=== PATIENT | male | born 1975 | race Caucasian/White ===

== ENCOUNTER 2016-08-19 23:03 | Inpatient (IN) | payer BC ==
[~2016-08-19] VITALS: Ht 193 cm; Wt 95.9 kg
[2016-08-19 23:53] VITALS: BP 169/86; PULSE 81; TEMP 98.5
[2016-08-20] VITALS (11 sets, daily range): BP systolic 114–170; BP diastolic 55–94; PULSE 71–91; TEMP 97.9–99.2
[2016-08-20 07:20] LABS: ADJUSTED CALCIUM 9.1 mg/dL (8.4-10.2); ALBUMIN 4.4 gm/dL (3.5-5.0); BILIRUBIN,TOTAL 6.9 mg/dL (0.0-1.0); CALCIUM 9.4 mg/dL (8.4-10.2); CREATININE, serum 1.25 mg/dL (0.66-1.25); TOTAL PROTEIN 8.5 gm/dL (6.4-8.2)
[2016-08-20 07:27] LABS: BASO # 0.1 (0.0-0.2); BASO % 1.1 % (0.0-2.0); EOS # 0.2 (0.0-0.7); EOS % 2.5 % (0-4.0); GRAN # 4.6 (1.4-6.5); GRAN % 64.2 % (42.2-75.2); HEMATOCRIT 47.8 % (42.0-52.0); HEMOGLOBIN 15.9 g/dl (13.5-18.0); LYMPH # 1.4 (1.2-3.4); LYMPH % 19.3 % (20.0-51.0); MEAN CELL VOLUME 86 fl (80.0-100.0); MEAN CORPUSCULAR HEMOGLOBIN 29 pg (27.0-31.0); MEAN CORPUSCULAR HGB CONC 33 g/dl (33.0-37.0); MEAN PLATELET VOLUME 11.4 fl (7.4-10.4); MONO # 0.9 (0.1-0.6); MONO % 12.8 % (1.7-9.3); PLATELET COUNT 226 K/mm3 (130-400); RED BLOOD COUNT 5.56 M/mm3 (4.20-5.60); WHITE BLOOD COUNT 7.2 K/mm3 (4.8-10.8)
[2016-08-21 00:04] VITALS: BP 136/71; PULSE 85; TEMP 98.9
[2016-08-21 06:36] LABS: BASO % 0.1 % (0.0-2.0); EOS % 0.1 % (0-4.0); GRAN # 6.3 (1.4-6.5); GRAN % 81.5 % (42.2-75.2); HEMATOCRIT 43.2 % (42.0-52.0); HEMOGLOBIN 14.2 g/dl (13.5-18.0); LYMPH # 0.8 (1.2-3.4); LYMPH % 9.7 % (20.0-51.0); MEAN CELL VOLUME 87 fl (80.0-100.0); MEAN CORPUSCULAR HEMOGLOBIN 29 pg (27.0-31.0); MEAN CORPUSCULAR HGB CONC 33 g/dl (33.0-37.0); MONO # 0.6 (0.1-0.6); MONO % 8.2 % (1.7-9.3); PLATELET COUNT 214 K/mm3 (130-400); RED BLOOD COUNT 4.98 M/mm3 (4.20-5.60); WHITE BLOOD COUNT 7.7 K/mm3 (4.8-10.8)
[2016-08-21 06:39] LABS: ADJUSTED CALCIUM 9.4 mg/dL (8.4-10.2); ALBUMIN 3.8 gm/dL (3.5-5.0); BILIRUBIN,TOTAL 6.9 mg/dL (0.0-1.0); CALCIUM 9.2 mg/dL (8.4-10.2); CREATININE, serum 0.97 mg/dL (0.66-1.25); POTASSIUM 4.3 mmol/L (3.4-5.0); TOTAL PROTEIN 7.4 gm/dL (6.4-8.2)
[2016-08-21 06:43] VITALS: BP 159/69; PULSE 66; TEMP 98.1
[2016-08-21] MEDS ORDERED: AMOXICILLIN/CLA1 TA1 PO (09:23)
[2016-08-21] MEDS ORDERED: NORCO 325 MG-7.1 TAB PO (09:23)
[2016-08-21 09:50] VITALS: BP 145/82; PULSE 82; TEMP 98.3
== END 2016-08-21 10:20 | disposition home or self-care (01) | DRG 419 ==
LOC: MEDICAL 23:03 → SURG 08-20 18:42 → MEDICAL 08-20 19:00 → SURG 08-20 22:01
PROVIDERS: Family Medicine; Surgery
PROC: BF131ZZ Fluoroscopy of Gallbladder and Bile Ducts using Low Osmolar Contrast (ICD-10-PCS; 2016-08-20)
PROC: 0FT44ZZ Resection of Gallbladder, Percutaneous Endoscopic Approach (ICD-10-PCS; principal; 2016-08-20 18:00)
DX: K80.63 Calculus of gallbladder and bile duct with acute cholecystitis with obstruction (principal)
CPT/HCPCS: 99222-AI; 99239; A9585; J0690; J0694; J1100; J1885; J2270; J2300; J2405; J2704; J2710; J3010; J7030; J7120; Q9967